=== PATIENT | female | born 1955 | race Caucasian/White ===

== ENCOUNTER 2016-12-22 12:49 | Outpatient (CLI) | payer OTHER, BC ==
--- NOTE | 2016-12-25 16:31 | Mammography Report ---
DIGITAL SCREENING MAMMOGRAM: 12/22/2016 CLINICAL INDICATION: A 61-year-old nulliparous patient, for screening. COMPARISON: 07/2014, 12/2012. TECHNIQUE: Routine CC and MLO projections were obtained of the breasts. Bilateral laterally exaggera esau craniocaudal views. FINDINGS: Scattered fibroglandular tissue is present within the breasts. There are no dominant esa s, suspicious microcalcifications, or secondary signs of malignancy. In comparison to the previous st udies, there are no significant changes. ASSESSMENT: NO MAMMOGRAPHIC EVIDENCE OF MALIGNANCY. NO SIGNIFICANT INTERVAL CHANGES. RECOMMENDATION: Screening mammography is recommended annually. BIRADS category 1 - negative. STANDARD QUALIFYING STATEMENTS 1. This examination was reviewed with the aid of Computed-Aided Detection (CAD). 2. A negative or benign imaging report should not delay biopsy if clinically suspicious findings are present. Consider surgical consultation if warranted. More than 5% of cancers are not identified by i maging. 3. Dense breasts may obscure an underlying neoplasm. JOB #: [id number] EXT JOB #:[id number]
== END 2016-12-22 12:50 | disposition home or self-care (01) ==
LOC: DI.N 12:49
PROVIDERS: ATTEND Family Medicine
DX: Z12.31 Encounter for screening mammogram for malignant neoplasm of breast (principal)
CPT/HCPCS: 77067

== ENCOUNTER 2017-09-25 07:43 | Outpatient (CLI) | payer OTHER ==
--- NOTE | 2017-09-25 11:12 | Ultrasound Report ---
LIMITED ABDOMEN ULTRASOUND: 09/25/2017 HISTORY: Right upper quadrant abdominal lump, present for about 40 years. TECHNIQUE: Real-time scanning of the right mid abdomen palpable abnormality with saved static images reviewed. FINDINGS: There is no evidence of cystic or solid mass or abnormal fluid collection. No anterior abdominal wall hernia is seen. The area in question appears to represent fat by ultrasound. IMPRESSION: THE PALPABLE ABNORMALITY IS FAT BY ULTRASOUND. TD: 09/25/2017 11:11 MTDD
== END 2017-09-25 07:44 | disposition home or self-care (01) ==
LOC: DI 07:43
PROVIDERS: ATTEND Family Medicine
DX: R19.01 Right upper quadrant abdominal swelling, mass and lump (principal)
CPT/HCPCS: 76705

== ENCOUNTER 2018-01-11 15:57 | Outpatient (CLI) | payer OTHER ==
--- NOTE | 2018-01-13 08:37 | Mammography Report ---
Procedure Date: 01/11/2018 Accession Number: [id number] / [id number] Procedure: MGN - Screening Mammo Dig Bilat CPT Code: FULL RESULT: EXAM: Screening Mammo Dig Bilat DATE: 01/11/2018 4:15 PM CLINICAL HISTORY: 62 year-old nulliparous female presents for screening mammography. She reports a significant weight loss of 30 pounds since her last mammogram. TECHNIQUE: Bilateral CC and MLO views were obtained. COMPARISON: 12/22/2016, 08/03/2014, 01/19/2013, 12/10/2011. FINDINGS: The breasts demonstrate scattered fibroglandular densities bilaterally. Left breast contains a coarse typically benign calcification. No suspicious masses, clustered microcalcifications, or regions of architectural distortion are identified. IMPRESSION: Benign findings RECOMMENDATION: Routine annual screening unless otherwise clinically indicated. BIRADS CATEGORY 2: Benign findings STANDARD QUALIFYING STATEMENTS: 1. This examination was reviewed with the aid of Computer-Aided Detection (CAD). 2. A negative or benign imaging report should not delay biopsy if clinically suspicious findings are present. Consider surgical consultation if warrented. More than 5% of cancers are not identified by imaging. 3. Dense breasts may obscure an underlying neoplasm.
== END 2018-01-11 15:58 | disposition home or self-care (01) ==
LOC: DI.N 15:57
PROVIDERS: ATTEND Family Medicine
DX: Z12.31 Encounter for screening mammogram for malignant neoplasm of breast (principal)
CPT/HCPCS: 77067

== ENCOUNTER 2018-02-18 11:25 | Day surgery (SDC) | payer OTHER ==
[2018-02-18] MEDS ORDERED: LACTATED RINGERS 1,000 ML IV ONE ×2 (11:30)
[2018-02-18] MEDS ORDERED: MIDAZOLAM 2 MG/2 ML VIAL IVP ONE (12:06)
[2018-02-18] MEDS ORDERED: fentaNYL 250 MCG/5 ML VIAL IVP ONE (12:06)
[2018-02-18 13:45] VITALS: BP 106/78
== END 2018-02-18 11:26 | disposition home or self-care (01) ==
LOC: SDS 11:25
PROVIDERS: ATTEND Internal Medicine Gastroenterology
PROC: 0DBN8ZZ Excision of Sigmoid Colon, Via Natural or Artificial Opening Endoscopic (ICD-10-PCS; principal; 2018-02-18 12:30)
DX: K63.5 Polyp of colon (principal); D50.9 Iron deficiency anemia, unspecified; F32.9 Major depressive disorder, single episode, unspecified; E66.9 Obesity, unspecified; Z68.27 Body mass index [BMI] 27.0-27.9, adult; F98.8 Other specified behavioral and emotional disorders with onset usually occurring in childhood and adolescence
CPT/HCPCS: 45380; J3010; J7120

== ENCOUNTER 2018-06-07 10:27 | Outpatient (CLI) | payer BC, OTHER ==
[2018-06-07 12:18] LABS: BASOPHILS # (AUTO) 0.1 10^3/uL (0.0-0.1); BASOPHILS % (AUTO) 1.2 %; EOSINOPHILS # (AUTO) 0.2 10^3/uL (0.0-0.7); EOSINOPHILS % (AUTO) 3.8 %; HGB - HEMOGLOBIN 13.6 g/dL (12.0-16.0); LYMPHOCYTES % (AUTO) 21.6 %; MEAN CORPUSCULAR HEMOGLOBIN 33.8 pg (27.0-31.0); MEAN CORPUSCULAR HGB CONC 34.3 g/dL (32.0-36.0); MEAN CORPUSCULAR VOLUME 98.7 fL (81.0-99.0); MEAN PLATELET VOLUME 7.4 fL (7.9-10.8); MONOCYTES # (AUTO) 0.5 10^3/uL (0.0-1.0); MONOCYTES % (AUTO) 10.1 %; NEUTROPHILS # (AUTO) 2.8 10^3/uL (1.5-6.6); NEUTROPHILS % (AUTO) 63.3 %; PLT - PLATELET COUNT 282 10^3/uL (130-450); RED BLOOD COUNT 4.01 10^6/uL (4.20-5.40); RED CELL DISTRIBUTION WIDTH 13.2 % (12.0-15.0); WHITE BLOOD COUNT 4.5 x10^3/uL (4.8-10.8)
[2018-06-07 13:32] LABS: % IRON SATURATION 25 % (20-50); IRON 75 ug/dL (28-170); TOTAL IRON BINDING CAPACITY 304 ug/dL (250-450); TRANSFERRIN 217 mg/dL (192-382)
== END 2018-06-07 23:59 | disposition home or self-care (01) ==
LOC: LAB.WCP 10:27
PROVIDERS: ATTEND Family Medicine
DX: D50.9 Iron deficiency anemia, unspecified (principal)
CPT/HCPCS: 36415; 82728; 83540; 84466; 85025

== ENCOUNTER 2019-01-25 08:30 | Outpatient (CLI) | payer BC ==
--- NOTE | 2019-01-25 09:07 | Mammography Report ---
Reason: SCREENING MAMMO Procedure Date: 01/25/2019 Accession Number: [id number] / [id number] Procedure: MGN - Screening Mammo Dig Bilat CPT Code: FULL RESULT: EXAM: Screening Mammo Dig Bilat DATE: 01/25/2019 8:53 AM CLINICAL HISTORY: Screening encounter. History of nulliparity. TECHNIQUE: (B) - Bilateral CC and MLO views were obtained. COMPARISON: 01/11/2018 through 01/19/2013. PARENCHYMAL PATTERN: (A) - The breast(s) demonstrate(s) scattered fibroglandular densities. FINDINGS: There are no suspicious masses, calcifications, or areas of distortion. IMPRESSION: Negative examination. BI-RADS category 1. RECOMMENDATION: (ANNUAL) - Recommend routine annual screening mammography. BI-RADS CATEGORY: (1) - Negative. STANDARD QUALIFYING STATEMENTS: 1. This examination was not reviewed with the aid of Computer-Aided Detection (CAD). 2. A negative or benign imaging report should not preclude biopsy if clinically suspicious findings are present. 3. Dense breasts may obscure an underlying neoplasm. 4. This examination was reviewed without the aid of 3D breast imaging (tomosynthesis).
== END 2019-01-25 08:31 | disposition home or self-care (01) ==
LOC: DI.N 08:30
DX: Z12.31 Encounter for screening mammogram for malignant neoplasm of breast (principal)
CPT/HCPCS: 77067

== ENCOUNTER 2020-02-17 08:25 | Outpatient (CLI) | payer OTHER, BC ==
--- NOTE | 2020-02-20 10:33 | Mammography Report ---
BILATERAL DIGITAL SCREENING MAMMOGRAM 3D/2D: 02/17/2020 CLINICAL: Routine screening. Comparison is made to exams dated: 01/11/2018 mammogram, 01/25/2019 mammogram, and 01/11/2017 mammogram - [facility]. There are scattered fibroglandular elements in both breasts. No significant masses, calcifications, or other findings are seen in either breast. There has been no significant interval change. IMPRESSION: NEGATIVE There is no mammographic evidence of malignancy. A 1 year screening mammogram is recommended. This exam was interpreted at Station ID: [id number]. NOTE: For mammograms, a report in lay terms will be sent to the patient. Approximately 15% of breast malignancies will not be visualized mammographically. In the management of a palpable breast mass, a negative mammogram must not discourage biopsy of a clinically suspicious lesion. Electronically Signed By: Aga gilbert/nicholas:02/17/2020 11:03:57 ACR BI-RADS Category 1: Negative 3341F PARENCHYMAL PATTERN: (A) - The breast(s) demonstrate(s) scattered fibroglandular densities. BI-RADS CATEGORY: (1) - 1 RECOMMENDATION: (ANNUAL) - Recommend routine annual screening mammography. [id number] 1 year screening LATERALITY: (B)
== END 2020-02-17 08:26 | disposition home or self-care (01) ==
LOC: DI.N 08:25
DX: Z12.31 Encounter for screening mammogram for malignant neoplasm of breast (principal)
CPT/HCPCS: 77063; 77067

== ENCOUNTER 2021-04-24 10:26 | Outpatient (CLI) | payer BC ==
--- NOTE | 2021-04-25 09:00 | Mammography Report ---
BILATERAL DIGITAL SCREENING MAMMOGRAM 3D/2D: 04/24/2021 CLINICAL: Routine screening. Comparison is made to exams dated: 02/17/2020 mammogram, 01/25/2019 mammogram, 01/11/2018 mammogram, 12/21 mammogram, 08/03/2014 mammogram, and 01/19/2013 mammogram - [facility]. There are scattered fibroglandular elements in both breasts. No significant masses, calcifications, or other findings are seen in either breast. There has been no significant interval change. IMPRESSION: NEGATIVE There is no mammographic evidence of malignancy. A 1 year screening mammogram is recommended. This exam was interpreted at Station ID: [id number]. NOTE: For mammograms, a report in lay terms will be sent to the patient. Approximately 15% of breast malignancies will not be visualized mammographically. In the management of a palpable breast mass, a negative mammogram must not discourage biopsy of a clinically suspicious lesion. Electronically Signed By: Fredrick Albert M.D. ddp/penrad:04/24/2021 12:17:34 ACR BI-RADS Category 1: Negative 3341F PARENCHYMAL PATTERN: (A) - The breast(s) demonstrate(s) scattered fibroglandular densities. BI-RADS CATEGORY: (1) - 1 RECOMMENDATION: (ANNUAL) - Recommend routine annual screening mammography. [id number] 1 year screening LATERALITY: (B)
== END 2021-04-24 10:27 | disposition home or self-care (01) ==
LOC: DI.N 10:26
DX: Z12.31 Encounter for screening mammogram for malignant neoplasm of breast (principal)

== ENCOUNTER 2022-08-21 08:36 | Outpatient (CLI) | payer MEDICARE, BC ==
--- NOTE | 2022-08-22 14:58 | Mammography Report ---
BILATERAL DIGITAL SCREENING MAMMOGRAM 3D/2D: 08/21/2022 CLINICAL: Routine screening. Comparison is made to exams dated: 04/24/2021 mammogram, 02/17/2020 mammogram, 01/25/2019 mammogram, 12/21 mammogram, 01/11/2017 mammogram, and 08/03/2014 mammogram - [facility]. There are scattered areas of fibroglandular density in both breasts (category b / 25%-50% glandular t issue). There is a possible developing equal density asymmetry in the left breast middle depth central to the nipple seen on the craniocaudal view only. No other significant masses, calcifications, or other findings are seen in either breast. IMPRESSION: INCOMPLETE: NEEDS ADDITIONAL IMAGING EVALUATION The possible developing equal density asymmetry in the left breast is indeterminate. Additional view s with possible ultrasound are recommended. Based on the Tyrer Cuzick model (a risk assessment model) the patients lifetime risk is 8.9% and her 10 year risk is 4.3%. According to the ACR, ACS, and NCCN guidelines, an annual breast MRI exam mitch g with mammogram is recommended if the patients lifetime risk is 20% or greater. This exam was interpreted at Station ID: [id number]. NOTE: For mammograms, a report in lay terms will be sent to the patient. Approximately 15% of breast malignancies will not be visualized mammographically. In the management of a palpable breast mass, a negative mammogram must not discourage biopsy of a clinically suspicious lesion. Electronically Signed By: Adolfo Ernst M.D. aty/:08/21/2022 11:45:39 ACR BI-RADS Category 0: Incomplete 3340F PARENCHYMAL PATTERN: (A) - The breast(s) demonstrate(s) scattered fibroglandular densities. BI-RADS CATEGORY: (0) - 0 Mammo and [place] [id number] Immediate follow-up LATERALITY: (L)
== END 2022-08-21 08:37 | disposition home or self-care (01) ==
LOC: DI.N 08:36
DX: Z12.31 Encounter for screening mammogram for malignant neoplasm of breast (principal)

== ENCOUNTER 2022-09-08 08:37 | Outpatient (CLI) | payer MEDICARE, BC ==
--- NOTE | 2022-09-09 13:13 | Ultrasound Report ---
LIMITED ULTRASOUND OF LEFT BREAST: 09/08/2022 CLINICAL: Patient returns today to evaluate a focal asymmetry in the left breast. Comparison is made to exams dated: 09/08/2022 mammogram, 08/21/2022 mammogram, 04/24/2021 mammogram, 01/21 mammogram, 01/25/2019 mammogram, and 01/11/2018 mammogram - [facility]. Color flow ultrasound of the left breast 4-7 o'clock region was performed on the areas of interest. Rodriguez scale images of the real-time examination were reviewed. IMPRESSION: SUSPICIOUS OF MALIGNANCY There are no sonographic abnormalities seen in the left breast to correspond with the mammographic fi ndings. If the two mammographic asymmetries with architetural distortion can be localized under stere otactic guidance, stereotactic biopsies are recommended. This exam was interpreted at Station ID: [id number]. SUMMARY: This was discussed with the patient by the radiologist at the time of the exam. Electronically Signed By: Aditi Hua M.D. lk/:09/08/2022 11:06:32 Ultrasound BI-RADS: 4 Suspicious for malignancy BI-RADS CATEGORY: (4) - 4 Biopsy follow-up [id number] Immediate follow-up LATERALITY: (B)
--- NOTE | 2022-09-09 13:13 | Mammography Report ---
UNILATERAL LEFT DIGITAL DIAGNOSTIC MAMMOGRAM 3D/2D WITH SPOT COMPRESSION: 09/08/2022 CLINICAL: Patient returns today to evaluate an asymmetry in the left breast. Comparison is made to exams dated: 08/21/2022 mammogram, 04/24/2021 mammogram, 02/17/2020 mammogram, 01/25 mammogram, 01/11/2018 mammogram, and 01/11/2017 mammogram - [facility]. There are scattered areas of fibroglandular density in the left breast (category b / 25%-50% glandula r tissue). There is architectural distortion in the left breast central to the nipple middle depth. There also is a focal asymmetry in the left breast at 5 o'clock posterior depth. There is architectu ral distortion associated with the focal asymmetry. No other significant masses or calcifications are seen in the breast. IMPRESSION: INCOMPLETE: NEEDS ADDITIONAL IMAGING EVALUATION The architectural distortion in the left breast central to the nipple middle depth is indeterminate. The focal asymmetry in the left breast at 5 o'clock posterior depth is indeterminate. A targeted ultrasound of the left breast is recommended and will be performed immediately following t his exam. Based on the Tyrer Cuzick model (a risk assessment model) the patients lifetime risk is 8.9% and her 10 year risk is 4.3%. According to the ACR, ACS, and NCCN guidelines, an annual breast MRI exam mitch g with mammogram is recommended if the patients lifetime risk is 20% or greater. This exam was interpreted at Station ID: [id number]. NOTE: For mammograms, a report in lay terms will be sent to the patient. Approximately 15% of breast malignancies will not be visualized mammographically. In the management of a palpable breast mass, a negative mammogram must not discourage biopsy of a clinically suspicious lesion. Electronically Signed By: Aditi Hua M.D. lk/:09/08/2022 10:19:19 ACR BI-RADS Category 0: Incomplete 3340F PARENCHYMAL PATTERN: (A) - The breast(s) demonstrate(s) scattered fibroglandular densities. BI-RADS CATEGORY: (0) - 0 Ultrasound [id number] Immediate follow-up LATERALITY: (B)
== END 2022-09-08 08:38 | disposition home or self-care (01) ==
LOC: DI 08:37
PROVIDERS: ATTEND Family Medicine
DX: R92.8 Other abnormal and inconclusive findings on diagnostic imaging of breast (principal)

== ENCOUNTER 2022-09-23 08:19 | Outpatient (CLI) | payer MEDICARE, BC ==
[~2022-09-23 08:19] MED LIST: LIDOCAINE 1%-EPI 1:100000 20 ML MDV ONE; LIDOCAINE-MPF 1% 5 ML VIAL ONE
[2022-09-23] MEDS ORDERED: LIDOCAINE-MPF 1% 5 ML VIAL TD ONE ×2 (10:09)
[2022-09-23] MEDS ORDERED: LIDOCAINE 1%-EPI 1:100000 20 ML MDV SUBQ ONE ×2 (10:10)
--- NOTE | 2022-09-26 15:27 | Mammography Report ---
STEREOTACTIC GUIDED BIOPSY LEFT BREAST USING VACUUM DEVICE WITH MARKING DEVICE INSERTED AND POST MAMM OGRAPHIC IMAGING- POST-PROCEDURE IMAGING FOR MARKER PLACEMENT: 09/23/2022 CLINICAL: Left stereotactic biopsy for architectural distortion. Correlation is made to exams dated: 09/08/2022 mammogram, 08/21/2022 mammogram, 04/24/2021 mammogram, mammogram, and 01/25/2019 mammogram - [facility]. A stereotactic guided biopsy was performed for the asymmetry located in the left breast central to th e nipple middle depth. This was described on the previous mammography report. The skin was prepped in the usual manner. Local anesthetic was administered to the access site. A skin dieudonne was made in the breast. The abnormality was approached from the craniocaudal aspect. A 10 gauge biopsy needle w as placed adjacent to the abnormality under computer guidance and confirmatory stereotactic mammograp hy images were obtained to document needle placement. Once the needle was documented to be in the co rrect location, five specimens were obtained using a vacuum assisted device. A clip was inserted int o the biopsy cavity. Post procedure mammographic imaging was obtained. The specimens were sent to [facility] for pathological analysis. IMPRESSION: STEREOTACTIC GUIDED BIOPSY BENIGN Stereotactic guided biopsy of the asymmetry in the left breast central to the nipple middle depth was successful. Clip appears to be in expected position on tomographic CC post-procedure views, but appears superiorl y offset from the expected position on lateral views, possibly due to clip migration. Pathology indicates benign fibrofatty breast tissue, concordant. A second stereotatic biopsy is recommended for the adjacent focal asymmetry, posterior depth at 5:00, described on 09/08/22. This exam was interpreted at Station ID: [id number]. Rick Piña M.D. lc/:09/26/2022 09:56:51 BI-RADS CATEGORY: () - Biopsy follow-up [id number] Immediate follow-up LATERALITY: (B)
== END 2022-09-23 08:20 | disposition home or self-care (01) ==
LOC: DI 08:19
PROVIDERS: ATTEND Family Medicine
DX: R92.8 Other abnormal and inconclusive findings on diagnostic imaging of breast (principal)
CPT/HCPCS: 19081

== ENCOUNTER 2022-10-14 08:02 | Outpatient (CLI) | payer BC, MEDICARE ==
[2022-10-14] MEDS ORDERED: LIDOCAINE-MPF 1% 5 ML VIAL ONE (08:05)
[2022-10-14] MEDS ORDERED: LIDOCAINE 1%-EPI 1:100000 20 ML MDV ONE (08:05)
[2022-10-14] MEDS ORDERED: LIDOCAINE 1%-EPI 1:100000 20 ML MDV SUBQ ONE (09:49)
[2022-10-14] MEDS ORDERED: LIDOCAINE-MPF 1% 5 ML VIAL TD ONE (09:50)
--- NOTE | 2022-10-17 15:05 | Mammography Report ---
STEREOTACTIC GUIDED BIOPSY LEFT BREAST USING VACUUM DEVICE WITH MARKING DEVICE INSERTED AND POST MAMM OGRAPHIC IMAGING- POST-PROCEDURE IMAGING FOR MARKER PLACEMENT: 10/14/2022 CLINICAL: Left stereotactic biopsy for architectural distortion. Correlation is made to exams dated: 09/23/2022 stereotactic biopsy, 09/08/2022 mammogram, 08/21/2022 mamm ogram, 04/24/2021 mammogram, and 02/17/2020 mammogram - [facility]. A stereotactic guided biopsy was performed for the asymmetry located in the left breast at 5 o'clock posterior depth. This was described on the previous mammography report. The skin was prepped in the usual manner. Local anesthetic was administered to the access site. A s kin dieudonne was made in the breast. The abnormality was approached from the craniocaudal aspect. A 10 gauge biopsy needle was placed adjacent to the abnormality under computer guidance and confirmatory s tereotactic mammography images were obtained to document needle placement. Once the needle was docum ented to be in the correct location, four specimens were obtained using a vacuum assisted device. A clip was inserted into the biopsy cavity. Post procedure mammographic imaging demonstrates the loc ation device at the targeted area. The specimens were sent to the laboratory for pathological analys is. IMPRESSION: STEREOTACTIC GUIDED BIOPSY BENIGN Stereotactic guided biopsy of the asymmetry in the left breast at 5 o'clock posterior depth was succe ssful. Pathology indicates benign fibrocystic changes (FC). Pathology results are concordant with imaging f indings. A 1 year screening mammogram is recommended. This exam was interpreted at Station ID: [id number]. Rick Briggs M.D. ,slc/:10/17/2022 11:46:36 BI-RADS CATEGORY: () - Mammogram [id number] 1 year screening LATERALITY: (B)
== END 2022-10-14 08:03 | disposition home or self-care (01) ==
LOC: DI 08:02
PROVIDERS: ATTEND Physician Assistant Medical
DX: N60.12 Diffuse cystic mastopathy of left breast (principal)
CPT/HCPCS: 19081

== ENCOUNTER 2023-08-31 10:48 | Outpatient (CLI) | payer BC, MEDICARE ==
--- NOTE | 2023-09-01 08:59 | Mammography Report ---
BILATERAL DIGITAL SCREENING MAMMOGRAM 3D/2D: 08/31/2023 CLINICAL: Routine screening. Comparison is made to exams dated: 10/14/2022 stereotactic biopsy, 09/23/2022 stereotactic biopsy, 09/08 ultrasound, 09/08/2022 mammogram, 08/21/2022 mammogram, and 04/24/2021 mammogram - [facility]. There are scattered areas of fibroglandular density in both breasts (category b / 25%-50% glandular t issue). There is architectural distortion in the left breast central to the nipple middle depth. No other significant masses, calcifications, or other findings are seen in either breast. IMPRESSION: INCOMPLETE: NEEDS ADDITIONAL IMAGING EVALUATION The architectural distortion in the left breast is indeterminate. Additional views with possible ult rasound are recommended. Based on the Tyrer Cuzick model (a risk assessment model) the patient's lifetime risk is 8.5% and her 10 year risk is 4.3%. According to the ACR, ACS, and NCCN guidelines, an annual breast MRI exam mitch g with mammogram is recommended if the patient's lifetime risk is 20% or greater. This exam was interpreted at Station ID: [id number]. NOTE: For mammograms, a report in lay terms will be sent to the patient. Approximately 15% of breast malignancies will not be visualized mammographically. In the management of a palpable breast mass, a negative mammogram must not discourage biopsy of a clinically suspicious lesion. Electronically Signed By: Aditi del rosario/nicholas:08/31/2023 12:04:34 ACR BI-RADS Category 0: Incomplete 3340F PARENCHYMAL PATTERN: (A) - The breast(s) demonstrate(s) scattered fibroglandular densities. BI-RADS CATEGORY: (0) - 0 Mammo and US [id number] Immediate follow-up LATERALITY: (B)
== END 2023-08-31 10:49 | disposition home or self-care (01) ==
LOC: DI.N 10:48
DX: Z12.31 Encounter for screening mammogram for malignant neoplasm of breast (principal); R92.8 Other abnormal and inconclusive findings on diagnostic imaging of breast; R92.323 Mammographic fibroglandular density, bilateral breasts

== ENCOUNTER 2023-10-08 08:50 | Outpatient (CLI) | payer BC, MEDICARE ==
--- NOTE | 2023-10-09 09:41 | Ultrasound Report ---
LIMITED ULTRASOUND OF LEFT BREAST: 10/08/2023 CLINICAL: Patient returns today to evaluate an architectural distortion in the left breast. Comparison is made to exams dated: 10/08/2023 mammogram, 08/31/2023 mammogram, 10/14/2022 stereotactic biopsy, 09/23/2022 stereotactic biopsy, 09/08/2022 ultrasound, and 09/08/2022 mammogram - [facility]. Color flow and real-time ultrasound of the left breast 6 o'clock, and retroareolar regions were perf ormed. Rodriguez scale images of the real-time examination were reviewed. There is a 1.2 cm x 1.0 cm x 0.8 cm irregular mass with an indistinct margin in the left breast at 6 o'clock, 1 cm from the nipple. This mass likely corresponds to spiculated mass seen on same day mammo gram. No abnormal lymph nodes are seen in the axilla. IMPRESSION: SUSPICIOUS OF MALIGNANCY Left breast 1.2 cm irregular mass at 6 o'clock, 1 cm from the nipple. Finding is suspicious. Recommen d ultrasound guided core biopsy with attention to clip placement on post biopsy mammogram. If findin g cannot be confidently reproduced at time of ultrasound guided biopsy, a stereotactic guided biopsy would then be recommended. Findings and recommendations were discussed with the patient by Dr. Galvin during today's examination. This exam was interpreted at Station ID: [id number]. Electronically Signed By: Li Cordova M.D., Ph.D. eb/:10/08/2023 12:47:16 Ultrasound BI-RADS: 4 Suspicious for malignancy BI-RADS CATEGORY: (4) - 4 RECOMMENDATION: (ADDMAM) - Recommend additional mammographic views. [id number] Immediate follow-up LATERALITY: (B)
--- NOTE | 2023-10-09 09:41 | Mammography Report ---
UNILATERAL LEFT DIGITAL DIAGNOSTIC MAMMOGRAM 3D/2D WITH SPOT COMPRESSION: 10/08/2023 CLINICAL: Patient returns today to evaluate an architectural distortion in the left breast. Comparison is made to exams dated: 08/31/2023 mammogram, 10/14/2022 stereotactic biopsy, 09/23/2022 ster eotactic biopsy, 09/08/2022 mammogram, 08/21/2022 mammogram, and 04/24/2021 mammogram - [facility]. There are scattered areas of fibroglandular density in the left breast (category b / 25%-50% glandula r tissue). There is a 1.6 cm irregular mass with a spiculated margin in the left breast central to the nipple mi ddle depth. This corresponds to finding seen on recent screening mammogram. No other significant masses or calcifications are seen in the breast. IMPRESSION: INCOMPLETE: NEEDS ADDITIONAL IMAGING EVALUATION The 1.6 cm irregular mass in the left breast is indeterminate. Based on the Tyrer Cuzick model (a risk assessment model) the patient's lifetime risk is 8.5% and her 10 year risk is 4.3%. According to the ACR, ACS, and NCCN guidelines, an annual breast MRI exam mitch g with mammogram is recommended if the patient's lifetime risk is 20% or greater. This exam was interpreted at Station ID: [id number]. NOTE: For mammograms, a report in lay terms will be sent to the patient. Approximately 15% of breast malignancies will not be visualized mammographically. In the management of a palpable breast mass, a negative mammogram must not discourage biopsy of a clinically suspicious lesion. Electronically Signed By: Li Cordova M.D., Ph.D. eb/:10/08/2023 12:26:48 ACR BI-RADS Category 0: Incomplete 3340F PARENCHYMAL PATTERN: (A) - The breast(s) demonstrate(s) scattered fibroglandular densities. BI-RADS CATEGORY: (0) - 0 Ultrasound [id number] Immediate follow-up LATERALITY: (B)
== END 2023-10-08 08:51 | disposition home or self-care (01) ==
LOC: DI 08:50
PROVIDERS: ATTEND Physician Assistant Medical
DX: N63.25 Unspecified lump in the left breast, overlapping quadrants (principal)

== ENCOUNTER 2023-10-19 09:16 | Outpatient (CLI) | payer BC, MEDICARE ==
[2023-10-19] MEDS: LIDOCAINE 1%-EPI 1:100000 20 ML MDV SUBQ ONE (15:02)
[2023-10-19] MEDS: LIDOCAINE-MPF 1% 5 ML VIAL TD ONE (15:02)
--- NOTE | 2023-10-20 10:10 | Mammography Report ---
UNILATERAL LEFT DIGITAL DIAGNOSTIC MAMMOGRAM - LEFT BREAST POST-PROCEDURE IMAGING FOR MARKER PLACEMEN CLINICAL: Post left breast ultrasound biopsy clip placement imaging. Comparison is made to exams dated: 10/08/2023 mammogram, 08/31/2023 mammogram, 10/08/2023 ultrasound, mammogram, 04/24/2021 mammogram, and 10/19/2023 ultrasound biopsy - [facility] There are scattered areas of fibroglandular density in the left breast (category b / 25%-50% glandula r tissue). There is a marker clip in the appropriate position in the left breast central to the nipple posterior depth. This marker clip placement is at the biopsy site. IMPRESSION: POST PROCEDURE MAMMOGRAM FOR MARKER PLACEMENT There was a successful marker clip placement in the left breast central to the nipple posterior depth . Based on the Tyrer Cuzick model (a risk assessment model) the patient's lifetime risk is 8.5% and her 10 year risk is 4.3%. According to the ACR, ACS, and NCCN guidelines, an annual breast MRI exam mitch g with mammogram is recommended if the patient's lifetime risk is 20% or greater. This exam was interpreted at Station ID: [id number]. NOTE: For mammograms, a report in lay terms will be sent to the patient. Approximately 15% of breast malignancies will not be visualized mammographically. In the management of a palpable breast mass, a negative mammogram must not discourage biopsy of a clinically suspicious lesion. Electronically Signed By: Manas howell/nicholas:10/20/2023 07:46:49 ACR BI-RADS Category Post-procedure mammogram for marker placement PARENCHYMAL PATTERN: (A) - The breast(s) demonstrate(s) scattered fibroglandular densities. BI-RADS CATEGORY: () - Unspecified - other recall n/a LATERALITY: (B)
--- NOTE | 2023-10-23 09:27 | Ultrasound Report ---
ULTRASOUND GUIDED BIOPSY LEFT BREAST USING VACUUM DEVICE WITH MARKING DEVICE INSERTED AND POST DIGITA L MAMMOGRAPHIC IMAGIN10/19/2023 CLINICAL: Left breast mass. PATIENT CONSENT: Risks (minor bleeding, infection, vasovagal reaction and repeat procedure), benefits and alternatives were explained to the patient and written informed consent was obtained. Correlation is made to exams dated: 10/08/2023 ultrasound, 10/08/2023 mammogram, 08/31/2023 mammogram, 08/21/2022 mammogram, and 04/24/2021 mammogram - [facility]. An ultrasound guided biopsy using real-time ultrasound was performed for the 1.2 cm x 1 cm x 0.8 cm i rregular shaped mass located in the left breast at 6 o'clock posterior depth. This was described on the previous mammography and ultrasound reports. The skin was prepped in the usual manner. Local an esthetic was administered to the access site. A skin dieudonne was made in the breast. The abnormality w as approached from the lateral aspect. A 13 gauge biopsy needle was placed adjacent to the abnormali ty under ultrasound guidance. Once the needle was documented to be in the correct location, five spe cimens were obtained using the Mammotome biopsy system. A clip was inserted into the biopsy cavity. A sterile dressing was applied to the access site. Post procedure digital mammographic imaging demo nstrates the location device at the targeted area. The specimens were sent to the laboratory for pat hological analysis. IMPRESSION: ULTRASOUND GUIDED BIOPSY MALIGNANT Ultrasound guided biopsy of the 1.2 cm x 1 cm x 0.8 cm mass in the left breast at 6 o'clock posterior depth was successful with no apparent post procedure complications. 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 Pathology results are concordant with imaging findings. A surgical/o ncologic consultation is recommended. This exam was interpreted at Station ID: [id number]. Manas Ernst M.D. ar,aty/:10/23/2023 08:07:02 BI-RADS CATEGORY: () - Unspecified - other recall n/a LATERALITY: (B)
== END 2023-10-19 09:17 | disposition home or self-care (01) ==
LOC: DI 09:16
PROVIDERS: ATTEND Physician Assistant Medical
DX: R92.322 Mammographic fibroglandular density, left breast (principal); C50.912 Malignant neoplasm of unspecified site of left female breast; Z17.0 Estrogen receptor positive status [ER+]
CPT/HCPCS: 19083

== ENCOUNTER 2023-11-12 12:56 | Outpatient (CLI) | payer BC, MEDICARE ==
[~2023-11-12 12:56] MED LIST changes: +GADOTERATE MEGLUMINE 10 MMOL/20 ML VIAL ONE; -LIDOCAINE 1%-EPI 1:100000 20 ML MDV ONE; -LIDOCAINE-MPF 1% 5 ML VIAL ONE
[2023-11-12 13:18] LABS: CREATININE 0.8 mg/dL (0.6-1.3)
[2023-11-12] MEDS: GADOTERATE MEGLUMINE 10 MMOL/20 ML VIAL IVP ONE (14:42)
--- NOTE | 2023-11-18 10:23 | MRI Report ---
BREAST MRI OF THE RIGHT BREAST: 11/12/2023 CLINICAL: Personal history of left breast cancer. PROCEDURE: Breast BL W/WO INDICATIONS: History of left breast invasive ductal carcinoma referred for evaluation of extent of d isease CONTRAST: CLARISCAN 18.2 ML TECHNIQUE: The patient was placed prone in a dedicated breast imaging coil. Precontrast axial STIR and 3D spoil ed GE without fat saturation sequences were obtained. Both before and after bolus injection of contr ast, sequential 1-minute axial 3D spoiled GE with fat saturation sequences for 3 time points, with valenzuela btraction images and maximum intensity projections (MIP's) generated. Delayed sagittal spoiled GE im ages with fat saturation were also obtained. Computer-aided detection, including computer algorithm analysis of MRI image data for lesion detectio n and characterization, pharmacokinetic analysis, with further physician review for interpretation, w as performed. COMPARISON: Mammogram 10/19/2023, 10/08/2023, 08/31/2023, 10/14/2022, 09/23/2022. FINDINGS: Image quality: There is mild interscan and and intrascan motion resulting in pseudo-enhancement on dy namic contrast-enhanced series. There are scattered amount of fibroglandular tissue. There is moderate and symmetric background paren chymal enhancement. Right breast: No suspicious enhancement or lymphadenopathy. Left breast: In the left breast, central to the nipple at posterior depth, there is an irregular mas s with irregular margins measuring 1.2 x 0.9 x 1.1 cm (AP by ML by SI, 48, ) corresponding t o biopsy-proven malignancy. Biopsy clip is at the posterolateral aspect of the mass. There is biopsy clip in the lower outer quadrant at 5:00 posterior depth () corresponding to ernie or benign and concordant biopsy demonstrating fibrocystic changes. There is an additional biopsy clip at 12:00 middle depth () corresponding to prior benign and co ncordant biopsy. No suspicious lymphadenopathy. IMPRESSION: KNOWN BIOPSY PROVEN MALIGNANCY Left breast biopsy proven unifocal malignancy presenting as an irregular mass in the central posterio r position measuring up to 1.2 cm with biopsy clip at site. No suspicious left lymphadenopathy. No MRI evidence of malignancy in the right breast. This exam was interpreted at Station ID: [id number]. Electronically Signed By: Li Cordova M.D., Ph.D. eb/:11/18/2023 00:36:28 ACR BI-RADS Category 6: Known biopsy proven malignancy 3346F BI-RADS CATEGORY: (6) - 6 Unspecified - other recall n/a LATERALITY: (B)
== END 2023-11-12 12:57 | disposition home or self-care (01) ==
LOC: LAB 12:56
PROVIDERS: ATTEND Physician Assistant Medical
DX: C50.012 Malignant neoplasm of nipple and areola, left female breast (principal)
CPT/HCPCS: 36415; 77049; 82565; A9575